=== PATIENT | female | born 1935 ===

== ENCOUNTER 2019-05-25 20:39 | Inpatient (IN) | payer OTHER ==
[~2019-05-25] VITALS: Ht 157.5 cm; Wt 70.3 kg
[2019-05-25] MEDS ORDERED: METFORMIN HCL500 M3 (20:59)
[2019-05-25] MEDS ORDERED: SYNTHROID50 MCG (20:59)
[2019-05-29] MEDS ORDERED: CIPRO500 MG PO (14:33)
== END 2019-05-30 00:16 | disposition home or self-care (01) | DRG 699 ==
LOC: ER 20:39 → MEDJ 05-26 00:37
PROVIDERS: ADMIT Internal Medicine
PROC: BW21Y0Z Computerized Tomography (CT Scan) of Abdomen and Pelvis using Other Contrast, Unenhanced and Enhanced (ICD-10-PCS; 2019-05-26)
PROC: 30233N1 Transfusion of Nonautologous Red Blood Cells into Peripheral Vein, Percutaneous Approach (ICD-10-PCS; principal; 2019-05-27)
DX: E11.22 Type 2 diabetes mellitus with diabetic chronic kidney disease (principal); C90.00 Multiple myeloma not having achieved remission; N39.0 Urinary tract infection, site not specified; E11.65 Type 2 diabetes mellitus with hyperglycemia; I12.9 Hypertensive chronic kidney disease with stage 1 through stage 4 chronic kidney disease, or unspecified chronic kidney disease; I70.0 Atherosclerosis of aorta; D25.2 Subserosal leiomyoma of uterus; E03.8 Other specified hypothyroidism; N18.3 Chronic kidney disease, stage 3 (moderate); D63.1 Anemia in chronic kidney disease; D69.59 Other secondary thrombocytopenia; K59.09 Other constipation; B96.5 Pseudomonas (aeruginosa) (mallei) (pseudomallei) as the cause of diseases classified elsewhere; Z79.4 Long term (current) use of insulin; Z74.01 Bed confinement status